=== PATIENT | female | born 1965 | race Two or more races ===

== ENCOUNTER 2021-11-24 08:30 | Inpatient (IN) | payer OTHER ==
[~2021-11-24] VITALS: Ht 170.2 cm; Wt 117.5 kg
[~2021-11-24 08:30] MED LIST: FOLIC ACID20 MG PO; LIPITOR20 MG PO; SYNTHROID175 MCG PO
[2021-11-24] MEDS ORDERED: METHOTREXATE2.5 MG PO (08:37)
[2021-11-30] MEDS ORDERED: FOLIC ACID1 MG (13:14)
[2021-11-30] MEDS ORDERED: LIDOCAINE1 EACH (13:14)
[2021-11-30] MEDS ORDERED: ACETAMINOPHEN-1 EAC2 (13:14)
[2021-11-30] MEDS ORDERED: CYANOCOBAL1000 MCG/1 (13:14)
[2021-11-30] MEDS ORDERED: DICYCLOMINE HCL20 MG (13:15)
[2021-11-30] MEDS ORDERED: MONTELUKAST SOD10 MG (13:15)
[2021-11-30] MEDS ORDERED: LINZESS145 MCG (13:15)
[2021-11-30] MEDS ORDERED: FAMOTIDINE40 MG (13:15)
[2021-11-30] MEDS ORDERED: PROAIR HFA8.5 GM (13:15)
[2021-12-02] MEDS ORDERED: ELIQUIS2.5 MG PO (15:00)
[2021-12-02] MEDS ORDERED: CIPRO500 MG PO (15:00)
[2021-12-02] MEDS ORDERED: PERCOCET 5-3251 EACH PO (15:00)
== END 2021-12-03 00:53 | disposition home or self-care (01) | DRG 470 ==
LOC: O/R 11-30 06:34 → SURH 11-30 08:30
PROVIDERS: ADMIT Orthopaedic Surgery; ATTEND Orthopaedic Surgery
PROC: 0SRD0J9 Replacement of Left Knee Joint with Synthetic Substitute, Cemented, Open Approach (ICD-10-PCS; principal; 2021-11-30 10:30)
DX: M17.12 Unilateral primary osteoarthritis, left knee (principal); D62 Acute posthemorrhagic anemia; M22.12 Recurrent subluxation of patella, left knee; E66.01 Morbid (severe) obesity due to excess calories; Z20.822 Contact with and (suspected) exposure to COVID-19; E03.8 Other specified hypothyroidism